=== PATIENT | male | born 1950 | race Caucasian/White ===

== ENCOUNTER 2019-07-14 06:09 | Inpatient (IN) | payer OTHER, SELFPAY | END 2019-07-16 12:41 | disposition home or self-care (01) | DRG 700 | PROVIDERS: Admitting Provider Urology; Emergency Provider Emergency Medicine; Family Provider Internal Medicine; Visit Provider Urology | DX: N30.40 Irradiation cystitis without hematuria (principal); R33.9 Retention of urine, unspecified; R31.0 Gross hematuria; Z85.46 Personal history of malignant neoplasm of prostate ==

== ENCOUNTER 2019-08-18 08:00 | Outpatient (RCR) | payer OTHER, SELFPAY | END 2019-08-18 23:59 | disposition home or self-care (01) | LOC: WOUND 08:00 | PROVIDERS: Family Provider Internal Medicine; PCP Internal Medicine; Visit Provider Nurse Practitioner Family | DX: L59.8 Other specified disorders of the skin and subcutaneous tissue related to radiation (principal); Y84.2 Radiological procedure and radiotherapy as the cause of abnormal reaction of the patient, or of later complication, without mention of misadventure at the time of the procedure | CPT/HCPCS: 99183; 99203; G0277; G0463 ==

== ENCOUNTER 2019-09-15 07:49 | Outpatient (RCR) | payer OTHER, SELFPAY | END 2019-09-16 23:59 | disposition home or self-care (01) | LOC: WOUND 07:49 | PROVIDERS: Family Provider Internal Medicine; PCP Internal Medicine; Visit Provider Surgery | DX: N30.41 Irradiation cystitis with hematuria (principal) | CPT/HCPCS: 99183; 99215; G0277 ==

== ENCOUNTER 2019-09-27 08:08 | Outpatient (RCR) | payer OTHER, SELFPAY | END 2019-10-17 23:59 | disposition home or self-care (01) | LOC: WOUND 08:08 | PROVIDERS: Family Provider Internal Medicine; PCP Internal Medicine; Visit Provider Emergency Medicine | DX: L59.8 Other specified disorders of the skin and subcutaneous tissue related to radiation (principal); Y84.2 Radiological procedure and radiotherapy as the cause of abnormal reaction of the patient, or of later complication, without mention of misadventure at the time of the procedure; N30.40 Irradiation cystitis without hematuria | CPT/HCPCS: 81001; 99183; G0277 ==

== ENCOUNTER → 2020-04-09 09:07 | Outpatient (BNVA) | payer OTHER, SELFPAY | PROVIDERS: Family Provider Internal Medicine; PCP Internal Medicine; Visit Provider Urology | DX: C61 Malignant neoplasm of prostate (principal); N30.40 Irradiation cystitis without hematuria | CPT/HCPCS: 81001; 84153 ==

== ENCOUNTER → 2020-07-04 10:18 | Outpatient (BNVA) | payer MEDICARE, BC, SELFPAY | PROVIDERS: Family Provider Internal Medicine; PCP Internal Medicine; Visit Provider Nurse Practitioner Family | DX: Z20.828 Contact with and (suspected) exposure to other viral communicable diseases (principal); J06.9 Acute upper respiratory infection, unspecified | CPT/HCPCS: 87635 ==

== ENCOUNTER 2020-07-07 04:52 | Emergency (ER) | payer OTHER, MEDICARE, BC, SELFPAY ==
[2020-07-07] VITALS (31 sets, daily range): BP systolic 148–164; BP diastolic 90–103; PULSE 51–70; RESP 10–37; TEMP 36.4; O2SAT 91–98; BMI 29.0
--- NOTE | 2020-07-07 05:12 | XRR_ITS ---
PROCEDURE INFORMATION: Exam: XR Chest, 1 View Exam date and time: 07/07/2020 5:56 AM Age: 70 years old Clinical indication: Condition or disease; Other: Covid 19 TECHNIQUE: Imaging protocol: XR of the chest Views: 1 view. COMPARISON: No relevant prior studies available. FINDINGS: Lungs: The right lung is clear. Mild atelectasis and/or pneumonia at the left lung base. Pulmonary vasculature within normal limits. Pleural space: No visible pneumothorax or pleural effusion. Heart/Mediastinum: Cardiomediastinal silhouette contour is within normal limits. Bones/joints: No emergent findings identified. XR/XR chest 1V portable [id number] IMPRESSION: 1. Mild atelectasis and/or pneumonia at the left lung base.
--- NOTE | 2020-07-07 05:43 | ED_ITS ---
HPI - COVID General: Chief Complaint: COVID symptoms Stated Complaint: infusion with kimo Time Seen by Provider: 07/07/20 05:10 Triage information: No fever, cough or shortness of breath . No known COVID + exposure last 14 days History of Present Illness: MD complaint: known COVID positive Prior covid testing: yes, results known COVID 19 common symptoms: positive chills, cough, body aches, headache(s) and nasal congestion; negative dyspnea COVID 19 other sytmptoms: negative chest pain, requiring oxygen or respiratory distress Onset (ago): day(s) Severity: moderate Pertinent comorbid conditions: hypertension and COPD/respiratory disease Treatment prior to arrival: acetaminophen COVID Results: SARS-CoV-2 RNA (RT-PCR) Detected (NOT DETECTED) A 07/04/20 10:18 07/04/20 Review of Systems Const: Reports: body aches ENMT: Reports: nasal congestion Card: Denies: chest pain Resp: Denies: dyspnea Neuro: Reports: headache(s) PFSH ED PFSH: Medical History (Updated 07/07/20 @ 05:53 by Nils Aviles DO) Erectile dysfunction Hypogonadism Lower urinary tract symptoms (LUTS) Prostate cancer No recurrence after radiation therapy Radiation cystitis Surgical History Hx of prostate biopsy Family History Father , at age 76 ruptured appendix No problems noted. Mother Hypertension Social History Smoking and tobacco status: former smoker Alcohol intake: current Alcohol intake frequency: holidays/special occasions only Marital status: Current occupational status: retired History of recent travel: No Physical Exam Const: COMMON NORMALS: no acute distress, average body habitus and patient oriented x3 HENMT: COMMON NORMALS: normocephalic HEAD & SCALP: normocephalic Chest: COMMONS NORMALS: normal inspection of the chest Resp: COMMON NORMALS: normal respiratory effort, No retractions and No use of accessory muscles Cardio: COMMON NORMALS: regular rate and regular rhythm RATE: regular rate RHYTHM: regular rhythm GI: INSPECTION: Yes normal to inspection Neuro: COMMON NORMALS: patient oriented x3 Course Vital Signs: Vital signs: Vital Signs Temperature 97.5 F L 07/07/20 05:09 Pulse Rate 70 07/07/20 05:09 Respiratory Rate 18 07/07/20 06:10 Blood Pressure 148/99 07/07/20 06:10 Pulse Oximetry 91 07/07/20 06:10 MDM - COVID MDM Narrative: Medical decision making narrative: 70-year-old male positive for COVID-19. He is here for monoclonal antibody infusion. He is getting the medication without complication so far. Provided he tolerates well, he will be held an hour post infusion, and discharged home. Lab Data: Labs: Lab Results 07/07/20 07/07/20 Range/Units 05:35 05:35 WBC 4.4 (4.0-10.0) 10^3/ uL RBC 5.66 H (4.1-5.3) 10^6/u L Hgb 17.3 H (11.7-16.6) g/dL Hct 53.0 H (42.0-52.0) % MCV 93.6 (80-94) fL MCH 30.6 (28.0-34.0) pg MCHC 32.6 (30.0-36.0) g/dL RDW 12.8 (12.1-15.1) % Plt Count 191 (130-400) 10^3/c mm MPV 9.7 (7.4-10.4) fL Neut % (Auto) 51.5 % Lymph % (Auto) 26.5 % Marinette % (Auto) 17.4 % Eos % (Auto) 3.7 % Baso % (Auto) 0.7 % Neut # (Auto) 2.25 (1.8-7.7) 10^3/u L Lymph # (Auto) 1.2 (0.8-4.8) 10^3/u L Marinette # (Auto) 0.8 (0.2-0.9) 10^3/u L Eos # (Auto) 0.2 (0.0-0.8) 10^3/u L Baso # (Auto) 0.0 (0.0-0.1) 10^3/u L Nucleated RBC % (a uto) 0 % Nucleated RBCs # 0.0 /100WBC Procalcitonin 0.02 (0-0.5) ng/mL COVID Results: SARS-CoV-2 RNA (RT-PCR) Detected (NOT DETECTED) A 07/04/20 10:18 1 09/04/19 Monoclonal Antibody Treatments Inclusion/Exclusion Criteria weight >/= 40 kg and + direct Sars-Cov-2 test less than 7-10 days ago age >/= 65 not requiring hospitalization and not requiring oxygen (if not chronically on oxygen) Patient education patient/family/caregiver received/reviewed fact sheet, Emergency Use Authorization/unapproved drug status discussed with patient/family/caregiver, alternatives to this treatment discussed with patient/family/caregiver, risks and benefits of medication reviewed with patient/family/caregiver, patient/family/caregiver given opportunity for questions, which were answered and patient consents to receiving Monoclonal Antibody Treatment Plan for treatment Meets criteria for Monoclonal Antibody infusion Monoclonal antibody information given Discharge Plan Discharge Patient Disposition: Home Clinical Impression: Viral infection, COVID-19 Condition: Stable Prescriptions: No Action lisinopril 20 mg tablet 20 mg PO DAILY RF: 0 Zyrtec 10 mg capsule PO RF: 0 albuterol sulfate 90 mcg/actuation aerosol powdr breath activated 2 inh INHALATION Q6H PRNRF: 0 Symbicort 80-4.5 mcg/actuation HFA aerosol inhaler 2 puff INHALATION BID RF: 0 Discharge Orders: Discharge ED (Routine); Ordered 07/07/20 Ordered By: Nils Aviles Referrals: Jamal Jovel [Primary Care Provider] - 7-10 days Discharge Diet: Advance as tolerated Discharge Activity: Limit activity as instructed Patient Instructions: Viral Syndrome (ED) Activity Restrictions/Additional Instructions: Continue to quarantine a total of at least 10 days as directed by your primary provider. Return for worsening shortness of breath, vomiting liquids or medications, and ability to control fever, other concerning symptoms. Coding Level of Care Code ED Coil Placer for Tisha Fwd Exam Detailed
[2020-07-07 05:48] LABS: Basophils % 0.7 %; Eosinophils # 0.2 10^3/uL (0.0-0.8); Eosinophils % 3.7 %; Hemoglobin 17.3 g/dL (11.7-16.6); Lymphocytes # 1.2 10^3/uL (0.8-4.8); Lymphocytes % 26.5 %; Mean Corpuscular HGB Conc 32.6 g/dL (30.0-36.0); Mean Corpuscular Hemoglobin 30.6 pg (28.0-34.0); Mean Corpuscular Volume 93.6 fL (80-94); Mean Platelet Volume 9.7 fL (7.4-10.4); Monocytes # 0.8 10^3/uL (0.2-0.9); Monocytes % 17.4 %; Neutrophils # 2.25 10^3/uL (1.8-7.7); Neutrophils % 51.5 %; Nucleated Red Blood Cells % 0 %; Platelet Count 191 10^3/cmm (130-400); Red Blood Count 5.66 10^6/uL (4.1-5.3); Red Cell Distribution Width 12.8 % (12.1-15.1); White Blood Count 4.4 10^3/uL (4.0-10.0)
[2020-07-07 06:15] LABS: Procalcitonin 0.02 ng/mL (0-0.5)
[2020-07-07 06:26] LABS: Alanine Aminotransferase 25 U/L (0-41); Albumin Level 3.8 g/dL (3.5-5.2); Alkaline Phosphatase 79 IU/L (40-130); Anion Gap 12.6 (5-19); Aspartate Amino Transferase 22 U/L (0-40); Blood Urea Nitrogen 13 mg/dL (8-23); C Reactive Protein 2.7 mg/L (0.0-4.9); Calcium 9.3 mg/dL (8.5-10.5); Carbon Dioxide 28 mmol/L (22-29); Chloride 97 mmol/L (98-107); Globulin 2.5 g/dL (1.3-4.6); Glomerular Filtration Rate 83.4 mL/min (90-130); Glucose 115 mg/dL (65-115); Magnesium 1.9 mg/dL (1.7-2.3); Osmolality Calculated 279 mOsm/kg (285-295); Potassium 3.6 mmol/L (3.5-5.1); Sodium 134 mmol/L (136-145); Total Bilirubin 0.3 mg/dL (0.15-1.2); Total Protein 6.3 g/dL (6.6-8.7)
--- NOTE | 2020-07-09 12:28 | DCPLANNER ---
Addendum entered by Belle Carlson 07/17/20 15:09: manager of it called to check on patient on day 10 after receiving the infusion. Spoke with patients , she stated that patient is feeling good, has not been admitted anywhere. Addendum entered by Belle Carlson 07/11/20 11:45: manager of it called to check on patient after receiving the BAM infusion. Patient stated that he is feeling good, he states that he has a headache. Original Note: manager of it had message that patient received the BAM infusion. manager of it called to check on patient after receiving the infusion. Spoke with patients , she stated that patient tolerated the infusion well. Before the infusion patient had headache, body ache, and small fever. After the infusion lost sense of taste and smell a little, no headache, body aches were better. stated that patient could not tell a big difference because he was over the worst part of it before getting infusion.
== END 2020-07-07 07:57 | disposition home or self-care (01) ==
PROVIDERS: Emergency Provider Emergency Medicine; PCP Internal Medicine
DX: U07.1 COVID-19 (principal); Z85.46 Personal history of malignant neoplasm of prostate; Z87.891 Personal history of nicotine dependence
CPT/HCPCS: 12345; 71045; 80053; 83735; 84145; 85025; 86140; 96365; 99283; 99284; J7050

== ENCOUNTER → 2021-04-09 08:22 | Outpatient (BNVA) | payer OTHER, SELFPAY | PROVIDERS: PCP Family Medicine; Visit Provider Urology | DX: C61 Malignant neoplasm of prostate (principal); N30.40 Irradiation cystitis without hematuria | CPT/HCPCS: 81003; 84153 ==

== ENCOUNTER 2022-04-09 09:27 | Outpatient (CLI) | payer OTHER, SELFPAY ==
[2022-04-09 10:28] LABS: Prostate Specific AG Urology 0.22 ng/mL (0-4)
== END 2022-04-09 09:28 | disposition home or self-care (01) ==
LOC: LAB 09:29
PROVIDERS: PCP Family Medicine; Visit Provider Urology
DX: C61 Malignant neoplasm of prostate (principal); N30.40 Irradiation cystitis without hematuria; Z85.46 Personal history of malignant neoplasm of prostate
CPT/HCPCS: 84153; 99213

== ENCOUNTER 2023-08-20 06:01 | Outpatient (CLI) | payer OTHER, SELFPAY ==
--- NOTE | 2023-08-20 | USCV_ITS ---
ShaistaMoreno crum Age: 73 Gender: M : 1950 Exam Date: 08/20/2023 06:20 Ordering Phys: Sabiha Fong MD Technologist: DEMI [place] [facility] [place] FORMER [place]MOKER[place] EVAL FOR AAA HISTORY: Diameter (cm) AP x Transverse x Length Velocity (cm/s) Waveform Prox Aorta: 2.43 x 2.92 x 75.20 Triphasic Mid Aorta: 2.81 x 2.62 x 79.50 Triphasic Distal Aorta: 2.13 x 2.26 x 38.20 Triphasic Right Iliac Prox: 1.02 x 1.05 x 81.60 Triphasic Left Iliac Prox: 1.00 x 1.12 x 88.10 Triphasic Stent Prox Landing x x Aneurysmal Sac Max x x Lt Lat Sac Dim Rt Lat Sac Dim Stent Dist Landing x x Right Iliac Stent x x Left Iliac Stent x x Right Renal Art Left Renal Art FINDINGS: Comparison: none available. Ectatic abdominal aorta with evidence of atherosclerotic plaque noted. No evidence of abdominal aortic or bilateral iliac aneurysm. CONCLUSIONS Atherosclerotic plaque is noted in the abdominal aorta. No evidence of abdominal aortic aneurysm. Dr. Mckenna Guadarrama DO (Electronically Signed) Final Date: 20 August 2023 07:47 S
== END 2023-08-20 06:02 | disposition home or self-care (01) ==
LOC: RAD 06:02
PROVIDERS: PCP Family Medicine; Visit Provider Family Medicine
DX: Z13.6 Encounter for screening for cardiovascular disorders (principal); Z87.891 Personal history of nicotine dependence; I70.0 Atherosclerosis of aorta
CPT/HCPCS: 76706

== ENCOUNTER 2023-08-27 14:53 | Outpatient (CLI) | payer OTHER, SELFPAY ==
--- NOTE | 2023-08-27 | CT_ITS ---
WS: [id number] CT chest w con* [id number] HISTORY: ASCENDING THORACIC ANEURYSM; FOLLOW UP TECHNIQUE: Axial imaging performed through the thorax. Coronal and sagittal reformats are submitted. All CT scans at [facility] use at least one of these dose optimization techniques: automated exposure control; mA and/or kV adjustment per patient size (includes targeted exams where dose is mat ched to clinical indication); or iterative reconstruction. CONTRAST: Omnipaque 350; 100 mL IV. DLP: 523.26 mGy.cm COMPARISON: None available. Lungs and central airway: Hyperinflated lungs with marked centrilobular emphysema. Benign granuloma R IGHT lower lobe. No mass or pneumonia. Pleura: Normal. No pleural effusion. Heart and pericardium: Normal size heart with no pericardial effusion. Mediastinum and bere: Mild lymphoid tissue in the hilar regions. No significantly enlarged lymph node s. There is a dilated fluid-filled esophagus. Air-fluid level is noted to the level of the deo wit hin the esophagus. There is diffuse wall thickening distally extending to involve the GE junction. Mo derate sized hiatal hernia. There is a long segment irregular esophageal lumen narrowing. Seen best o n the sagittal reformat is wall thickening extending over a length of at least 3.5 cm which needs to be further evaluated. Vessels: Mildly ectatic atherosclerotic aorta. Maximum diameter of ascending aorta is 3.8 cm. Normal descending aorta. No aneurysm. Normal size pulmonary artery. Chest wall and lower neck: No soft tissue masses. Upper abdomen: Hepatic steatosis. No adrenal mass. Osseous structures: Marked increase in thoracic kyphosis. Disc bases are diffusely narrowed throughou t the thoracic spine. IMPRESSION: 1. Atherosclerotic thoracic aorta with plaque and ectasia. No aneurysm. Maximum diameter is 3.8 cm. 2. Abnormal esophagus. Circumferential esophageal wall thickening involving the distal 3.5 cm with l uminal narrowing. There is an air-fluid level in the esophagus. Recommend endoscopy for further evalu ation and to exclude neoplasm. 3. Marked centrilobular emphysema. 4. Hiatal hernia. 5. No mediastinal or hilar adenopathy.
[2023-08-27] MEDS: iohexol 350 mg/mL 500 mL Btl (per mL) IV (15:55)
== END 2023-08-27 14:54 | disposition home or self-care (01) ==
PROVIDERS: PCP Family Medicine; Visit Provider Family Medicine
DX: I71.21 Aneurysm of the ascending aorta, without rupture (principal); J43.2 Centrilobular emphysema; K44.9 Diaphragmatic hernia without obstruction or gangrene
CPT/HCPCS: 71260; Q9967

== ENCOUNTER → 2023-09-21 14:14 | Outpatient (BNVA) | payer OTHER, SELFPAY | PROVIDERS: PCP Family Medicine; Referring Provider Family Medicine; Visit Provider Surgery | DX: K22.89 Other specified disease of esophagus (principal); K22.9 Disease of esophagus, unspecified | CPT/HCPCS: 99204 ==

== ENCOUNTER 2023-10-06 05:49 | Day surgery (SDC) | payer OTHER, SELFPAY ==
[2023-10-06 06:09] VITALS: BP 120/83; PULSE 69; RESP 14; TEMP 36; O2SAT 95; BMI 27.3
--- NOTE | 2023-10-06 06:24 | P.HPUD_ITS ---
Surgery/Procedure H&P Update DATE OF PROCEDURE: October 06, 2023 DATE H&P PERFORMED: 09/21/23 H&P UPDATE INFORMATION: I have reviewed H&P completed within last 30 days, I have examined patient prior to procedure, No changes to prior documentation and H&P is in [facility] [place] EMR on date indicated PLANNED PROCEDURE: Operation Date: 10/06/23 07:00 Proposed Procedures p [id number] egd K22.89(Not Applicable) - Franc Bradshaw MD
--- NOTE | 2023-10-06 06:24 | W.PM.OPSUD ---
Surgery/Procedure H&P Update DATE OF PROCEDURE: October 06, 2023 DATE H&P PERFORMED: 09/21/23 H&P UPDATE INFORMATION: I have reviewed H&P completed within last 30 days, I have examined patient prior to procedure, No changes to prior documentation and [place] [facility] [place] indicated PLANNED PROCEDURE: Operation Date: 10/06/23 07:00 Proposed Procedures p [id number] egd K22.89(Not Applicable) - Franc Bradshaw MD
[2023-10-06] MEDS: sodium chloride 0.9% 1,000 ML 30 ML IV (06:39)
--- NOTE | 2023-10-06 06:54 | ANES.PREANE2 ---
Pre-Anesthetic Assessment Height/Weight: Height 1.7 m Weight 79.379 kg Temp Pulse Resp BP Pulse Ox O2 Del Method 96.8 F L 69 14 120/83 95 Room Air 10/06/23 06:09 10/06/23 06:09 10/06/23 06:09 10/06/23 06:09 10/06/23 06:09 10/06/23 06:09 Preop Diagnosis: Mass of esophagus Operation Date: 10/06/23 07:00 Proposed Procedures p [id number] egd K22.89(Not Applicable) - Franc Bradshaw MD Was Beta Cathryn taken within 24 hours: N/A Was Clonidine taken within 24 hours: N/A Last intake: Intake Last Liquid Date 10/05/23 Last Liquid Time 17:00 Last Solid Date 10/05/23 Last Solid Time 17:00 Social Alcohol (not daily) and No tobacco (History) Exam alert, oriented x 3, clear to auscultation bilaterally and regular rate & rhythm Airway Submandibular: within normal limits Cervical ROM: within normal limits Mallampati: Class II Dentition: full Pulmonary Chronic Obstructive Pulmonary Disease CV/HEM Hypertension None reported Hepatic None reported GI Gastroesophageal Reflux Disease (controlled) Metabolic Hyperlipidemia [facility] [place] Lower Back Pain Neuropsych None reported Anesthetic Plan ASA status: 2 Anesthesia: MAC Risk of > 500 ml blood loss (7ml/kg in children): No Medications/Allergies Home Medications Medication Instructions Recorded Confirmed Last Taken Type albuterol sulfate 90 mcg/actuation 2 inh inhalation Q6H PRN Shortness 09/22/19 10/06/23 Unknown History breath activated powder inhaler Of Breath lisinopril 20 1 tab PO DAILY 04/09/21 10/06/23 10/05/23 History mg-hydrochlorothiazide 12.5 mg tablet cetirizine 10 mg capsule (Zyrtec) 10 mg PO DIRECTED PRN allergies 04/09/22 10/06/23 10/05/23 History fluticasone 100 mcg-salmeterol 50 1 inh inhalation BID 04/09/22 10/06/23 10/05/23 History mcg/dose blistr powdr for inhalation (Wixela Inhub) coQ10 (ubiquinol) 100 mg capsule 100 mg PO DAILY 09/21/23 10/04/23 3 Weeks Ago History (Qunol Cali CoQ10) ~09/13/23 simvastatin 10 mg tablet 10 mg PO ONCE 09/21/23 10/06/23 10/05/23 History omeprazole 40 mg capsule,delayed 40 mg PO DAILY 10/04/23 10/06/23 10/05/23 History release Allergies Allergy/AdvReac Type Severity Reaction Status Date / Time tamsulosin [From Flomax] AdvReac headache Verified 10/04/23 09:10 Current Medications Generic Name Dose Route Start Last Admin Trade Name Romel PRN Reason Stop Dose Admin Sodium Chloride 1,000 mls @ 30 mls/hr 10/06/23 06:00 10/06/23 06:39 Sodium Chloride 0.9% IV 30 mls/hr .Q24H SORAYA Administration PFSH Anesthesia Medical History (Updated 09/21/23 @ 17:00 by Franc Bradshaw MD) Hypogonadism Prostate cancer No recurrence after radiation therapy Radiation cystitis HBO therapy required for recurrent bleeding. Completed 2019. Lower urinary tract symptoms (LUTS) Erectile dysfunction Surgical History (Updated 09/21/23 @ 14:47 by KANDACE Saravia) Hx of prostate biopsy Family History Father , at age 76 ruptured appendix No problems noted. Mother Hypertension Social History (Updated 09/21/23 @ 14:45 by KANDACE Saravia) Smoking and tobacco/nicotine status: former use of tobacco/nicotine Alcohol intake: current Alcohol intake frequency: holidays/special occasions only Marital status: Current occupational status: retired Data Anesthesia Cardiac Studies: No Data to Display
[2023-10-06 07:28] VITALS: BP 107/76; PULSE 58; RESP 12; TEMP 36.3; O2SAT 94
[2023-10-06 07:36] VITALS: BP 113/76; PULSE 60; RESP 18; O2SAT 98
--- NOTE | 2023-10-06 07:40 | ANE.PACU2 ---
Inpatient post-anesthesia follow up: Airway intact: Yes Vital signs: Temperature 97.3 F Pulse Rate 60 Respiratory Rate 18 Blood Pressure 113/76 Pulse Oximetry 98 Oxygen Delivery Me thod Room Air Oxygen Flow Rate Fraction of Inspir ed Oxygen Hydration adequate: Yes Nausea and vomiting: No Pain level: 1 Mental status: Baseline
== END 2023-10-06 07:44 | disposition home or self-care (01) ==
PROVIDERS: PCP Family Medicine; Visit Provider Surgery
PROC: 0DJ08ZZ Inspection of Upper Intestinal Tract, Via Natural or Artificial Opening Endoscopic (ICD-10-PCS; CPT 43235; principal; 2023-10-06 07:00)
DX: K22.89 Other specified disease of esophagus (principal); K44.9 Diaphragmatic hernia without obstruction or gangrene; K29.80 Duodenitis without bleeding; K29.50 Unspecified chronic gastritis without bleeding; J44.9 Chronic obstructive pulmonary disease, unspecified; I10 Essential (primary) hypertension; K21.9 Gastro-esophageal reflux disease without esophagitis; E78.5 Hyperlipidemia, unspecified; Z85.46 Personal history of malignant neoplasm of prostate; Z87.891 Personal history of nicotine dependence
CPT/HCPCS: 43239; 88305; J2704; J7030

== ENCOUNTER 2023-10-12 08:29 | Outpatient (RCR) | payer OTHER, SELFPAY | END 2023-10-17 23:59 | disposition home or self-care (01) | LOC: SPT 08:29 | PROVIDERS: PCP Family Medicine; Visit Provider Family Medicine | DX: R26.9 Unspecified abnormalities of gait and mobility (principal) | CPT/HCPCS: 97110; 97162 ==

== ENCOUNTER 2023-10-18 06:00 | Outpatient (RCR) | payer OTHER, SELFPAY | END 2023-11-16 23:59 | disposition home or self-care (01) | LOC: SPT 06:00 | PROVIDERS: PCP Family Medicine; Visit Provider Family Medicine | DX: R26.9 Unspecified abnormalities of gait and mobility (principal) | CPT/HCPCS: 97110; 97530 ==

== ENCOUNTER → 2023-10-19 08:44 | Outpatient (BNVA) | payer OTHER, SELFPAY | PROVIDERS: PCP Family Medicine; Visit Provider Surgery | DX: Z09 Encounter for follow-up examination after completed treatment for conditions other than malignant neoplasm (principal) | CPT/HCPCS: 99213 ==

== ENCOUNTER 2023-11-17 06:00 | Outpatient (RCR) | payer OTHER, SELFPAY | END 2023-12-17 23:59 | disposition home or self-care (01) | LOC: SPT 06:00 | PROVIDERS: PCP Family Medicine; Visit Provider Family Medicine | DX: R26.89 Other abnormalities of gait and mobility (principal) | CPT/HCPCS: 97110; 97530 ==

== ENCOUNTER 2025-01-18 12:26 | Outpatient (CLI) | payer OTHER, SELFPAY ==
--- NOTE | 2025-01-18 12:33 | MR_ITS ---
WS: [id number] MRI LUMBAR SPINE NONCONTRAST HISTORY: LEG WEAKNESS/BILATERAL HIP PAIN COMPARISON: None available. TECHNIQUE: Sagittal and axial multisequence imaging is submitted. Advanced degenerative changes in the cervical and thoracic spine. Disc osteophyte complex encroaching upon the ventral cervical cord at C3-4 and C4-5. Increase in thoracic kyphosis. Mild curvature lumbar spine with increase in lordosis. There is a very small amount of increased signal on all 3 sequences in the adjacent endplates of T11 and T12. Bilateral foraminal stenosis at T11-12. Disc spaces are narrowed and desiccated. Conus terminates normally at L1-2 disc level. L1-L2: Mild facet arthritis. No stenosis. L2-L3: Mild annular disc bulging with ligamentum flavum and facet arthropathy. Mild disc encroachment upon the traversing L3 nerve roots. Mild central and bilateral subarticular recess stenosis. L3-L4: Diffuse annular disc bulging with osteophytic ridging, ligamentum flavum and facet arthropathy. Disc contact on the traversing L4 nerve roots. No significant foraminal stenosis. Mild central and subarticular recess stenosis. L4-L5: Diffuse annular disc bulging with osteophytic ridging, moderate ligamentum flavum and facet arthritis. Shallow LEFT foraminal disc protrusion. Mild central, subarticular recess and foraminal stenosis. L5-S1: Mild annular disc bulge with a central annular fissure. Moderate facet arthropathy. Minimal disc contact on the exiting RIGHT L5 nerve root. Mild RIGHT foraminal stenosis. Ectatic abdominal aorta. Mild ectasia and dilatation in the infrarenal aorta. MR/MR lumbar spine wo con* [id number] IMPRESSION: 1. No high-grade central or foraminal stenosis in the lumbar spine. 2. L5-S1: Mild RIGHT foraminal stenosis with disc osteophyte contact on the ex iting RIGHT L5 nerve root. 3. L4-5: Mild central, subarticular recess and foraminal stenosis. Shallow LEF T foraminal disc protrusion. 4. L3-4: Mild central and subarticular recess stenosis. Mild disc contact on t he traversing L4 nerve roots. 5. Mild central and bilateral subarticular recess stenosis at L2-3. 6. Disc osteophyte encroachment upon the ventral thecal sac at C3-4 and C4-5. 7. Advanced degenerative disc disease at T11-12.
== END 2025-01-18 12:27 | disposition home or self-care (01) ==
LOC: RAD 12:26
PROVIDERS: PCP Family Medicine; Visit Provider Family Medicine
DX: M48.061 Spinal stenosis, lumbar region without neurogenic claudication (principal); M51.34 Other intervertebral disc degeneration, thoracic region; M25.552 Pain in left hip; M25.551 Pain in right hip
CPT/HCPCS: 72148

== ENCOUNTER 2025-01-26 09:28 | Outpatient (CLI) | payer OTHER, SELFPAY ==
--- NOTE | 2025-01-26 09:35 | USR_ITS ---
PROCEDURE INFORMATION: Exam: US Duplex Bilateral Lower Extremity Arteries Exam date and time: 01/26/2025 9:53 AM Age: 74 years old Clinical indication: Bilateral lower leg pain. Leg weakness/pain/abnormal gait TECHNIQUE: Imaging protocol: Real-time ultrasound scan of the arteries of the bilateral lower extremities with 2-D modi scale, color Doppler flow and spectral waveform analysis. Images documented and saved. COMPARISON: CT abdomen pelvis w con* [id number] 03/25/2019 12:44 PM FINDINGS: Triphasic waveforms are seen in the arterial system bilaterally. RIGHT: The peak systolic velocity within the right common femoral artery is 64 cm/s. The peak systolic velocity within the proximal right femoral artery is 77 cm/s. The peak systolic velocity within the mid right femoral artery is 51 cm/s. The peak systolic velocity within the distal right femoral artery is 52 cm/s. The peak systolic velocity within the right popliteal artery is 48 cm/s. The peak systolic velocity within the right posterior tibialis artery is 37 cm/s. The peak systolic velocity within the right dorsalis pedis artery is 42 cm/s. The right ankle-brachial index is 1.1. LEFT: The peak systolic velocity within the left common femoral artery is 58 cm/s. The peak systolic velocity within the proximal left femoral artery is 85 cm/s. The peak systolic velocity within the mid left femoral artery is 51 cm/s. The peak systolic velocity within the distal left femoral artery is 44 cm/s. The peak systolic velocity within the left anterior tibial artery is 29 cm/s. The peak systolic velocity within the left posterior tibialis artery is 44 cm/s. The peak systolic velocity within the left dorsalis pedis artery is 35 cm/s. The left ankle-brachial index is 1.1. US/CV arterial duplex [facility] [id number] IMPRESSION: 1. No hemodynamically significant stenosis is identified. 2. Normal ankle-brachial indices.
== END 2025-01-26 09:29 | disposition home or self-care (01) ==
LOC: RAD 09:29
PROVIDERS: PCP Family Medicine; Visit Provider Family Medicine
DX: R53.1 Weakness (principal); M79.605 Pain in left leg; M79.604 Pain in right leg; R26.89 Other abnormalities of gait and mobility
CPT/HCPCS: 93925

== ENCOUNTER 2025-05-13 10:25 | Emergency (ER) | payer OTHER, SELFPAY ==
[2025-05-13 10:25] VITALS: BP 141/90; PULSE 73; RESP 16; TEMP 36.7; O2SAT 95; BMI 25.8
--- NOTE | 2025-05-13 10:31 | XRR_ITS ---
PROCEDURE INFORMATION: Exam: XR Right Knee Exam date and time: 05/13/2025 10:52 AM Age: 74 years old Clinical indication: Pain; Knee; Right; Additional info: RT lower lateral knee pain after hyperflexion injury TECHNIQUE: Imaging protocol: Radiologic exam of the right knee. Views: 3 views. COMPARISON: No relevant prior studies available. FINDINGS: Bones/joints: There are mild degenerative changes of the knee joint, predominantly involving the medial joint compartment. Marginal osteophytes along the medial femoral condyle and medial tibial plateau. No acute fracture or subluxation. No periosteal reaction or callus formation. Soft tissues: Normal. XR/XR knee RT 3V* [id number] IMPRESSION: No acute fracture or subluxation.
--- NOTE | 2025-05-13 10:36 | W.ED.FALL ---
HPI - Fall General: Chief Complaint: Fall Stated Complaint: right leg pain s/p fall Time Seen by Provider: 05/13/25 10:28 Source: patient and EMS Mode of arrival: EMS Limitations: no limitations History of Present Illness: 74-year-old male recently diagnosed with ALS states that he uses wheelchair to get around states he was getting into his wheelchair slipped and fell twisting his right knee. States had right knee pain since then he rates a 4 out of 10 seen to be worse with movement he denies any other injuries from his fall denies hitting his head Related Data Home Medications ?Medication ?Instructions ?Recorded ?Confirmed albuterol sulfate 90 mcg/actuation 2 inh inhalation Q6H PRN Shortness 09/22/19 10/19/23 breath activated powder inhaler Of Breath lisinopril 20 1 tab PO DAILY 04/09/21 10/19/23 mg-hydrochlorothiazide 12.5 mg tablet cetirizine 10 mg capsule (Zyrtec) 10 mg PO DIRECTED PRN allergies 04/09/22 10/19/23 fluticasone 100 mcg-salmeterol 50 1 inh inhalation BID 04/09/22 10/19/23 mcg/dose blistr powdr for inhalation (Wixela Inhub) coQ10 (ubiquinol) 100 mg capsule 100 mg PO DAILY 09/21/23 10/19/23 (Qunol Cali CoQ10) simvastatin 10 mg tablet 10 mg PO ONCE 09/21/23 10/19/23 Previous Rx's ?Medication ?Instructions ?Recorded pantoprazole 40 mg tablet,delayed 40 mg PO BID #60 tabs 10/06/23 release Allergies Allergy/AdvReac Type Severity Reaction Status Date / Time tamsulosin (From Flomax) AdvReac headache Verified 10/04/23 09:10 [facility] ED PFSH: Medical History Hypogonadism Prostate cancer No recurrence after radiation therapy Radiation cystitis HBO therapy required for recurrent bleeding. Completed 2019. Lower urinary tract symptoms (LUTS) Erectile dysfunction Surgical History Hx of prostate biopsy Family History Father , at age 76 ruptured appendix No problems noted. Mother Hypertension Social History Smoking and tobacco/nicotine status: former use of tobacco/nicotine Alcohol intake: current Alcohol intake frequency: holidays/special occasions only Marital status: Current occupational status: retired Physical Exam Const: COMMON NORMALS: no acute distress, patient oriented x3 and healthy appearing HENMT: COMMON NORMALS: normocephalic and atraumatic HEAD & SCALP: normocephalic and atraumatic Eye: COMMON NORMALS: EOMs intact bilaterally Neck/C-Spine: COMMON NORMALS: full ROM and supple Chest: COMMONS NORMALS: normal inspection of the chest Resp: COMMON NORMALS: normal respiratory effort Cardio: COMMON NORMALS: regular rate RATE: regular rate Extremity: COMMON NORMALS: full ROM NARRATIVE EXTREMITY EXAM: Slight tenderness to right knee no obvious deformity distal pulse sensation intact Neuro: COMMON NORMALS: patient oriented x3, moves all extremities and no focal motor deficits Psych: COMMON NORMALS: mental status grossly normal, Normal thought process present and cooperative THOUGHT PROCESS: Normal thought process present Skin: COMMON NORMALS: no rashes or lesions noted and no wounds GENERAL SKIN EXAM: no rashes or lesions noted Course Vital Signs: Vital signs: Vital Signs Temperature 98.0 F 05/13/25 10:25 Pulse Rate 73 05/13/25 10:25 Respiratory Rate 16 05/13/25 10:25 Blood Pressure 121/85 05/13/25 11:00 Pulse Oximetry 95 05/13/25 10:25 Oxygen Delivery Me thod Room Air 05/13/25 10:25 MDM - Fall Medical Decision Making Patient presents with right knee pain after a fall x-ray here shows no signs of fracture. He had no other injuries no signs of head injury or neck injury. He has been well-appearing here with normal vitals did go over imaging with him and his family he is stable for discharge follow-up with PCP return if worsening. Medical Records I reviewed the patient's medical records. XR interpretation done by ED provider, pending radiology final review ED provider radiology interpretation(s): xr r knee: no acute fx Discharge Plan Discharge Patient Disposition: Home Clinical Impression: Right knee sprain Fall Qualifiers: Encounter type: initial encounter Qualified Code(s): W19.XXXA - Unspecified fall, initial encounter Condition: Stable Prescriptions: No Action albuterol sulfate 90 mcg/actuation aerosol powdr breath activated 2 inh INHALATION Q6H PRN (Reason: Shortness Of Breath) Zyrtec 10 mg capsule 10 mg PO DIRECTED PRN (Reason: allergies) lisinopril-hydrochlorothiazide 20-12.5 mg tablet 1 tab PO DAILY fluticasone propion-salmeterol [Wixela Inhub] 100-50 mcg/dose blister with device 1 inh inhalation BID coQ10 (ubiquinol) [Qunol Cali CoQ10] 100 mg capsule 100 mg PO DAILY simvastatin 10 mg tablet 10 mg PO ONCE pantoprazole 40 mg tablet,delayed release (DR/EC) 40 mg PO BID Qty: 60 0RF Discharge Orders: Discharge ED (Routine); Ordered 05/13/25 Ordered By: Silvestre Us Referrals: Sabiha Fong MD [Primary Care Provider, Family Practice] - 4-7 days Discharge Diet: Advance as tolerated Discharge Activity: Resume usual activity Patient Instructions: Knee Sprain (ED) Print Language: Chinese Coding Level of Care Code ED Boring Inspector for Tisha Bhakta
[2025-05-13 11:00] VITALS: BP 121/85
== END 2025-05-13 11:27 | disposition home or self-care (01) ==
PROVIDERS: Emergency Provider Emergency Medicine; PCP Family Medicine
DX: S83.91XA Sprain of unspecified site of right knee, initial encounter (principal); W19.XXXA Unspecified fall, initial encounter; Z87.891 Personal history of nicotine dependence; Z85.46 Personal history of malignant neoplasm of prostate
CPT/HCPCS: 73562; 99283